=== PATIENT | female | born 1955 | race Caucasian/White ===

== ENCOUNTER 2020-09-06 06:25 | Observation (INO) ==
[2020-09-06 08:18] LABS: ABS Monocytes 0.5 10^3/ul (0-0.8); ABS Neutrophils 7.2 10^3/ul (1.5-7.7); Eosinophil % 0.4 %; Hematocrit 42 % (35-47); Lymphocyte % 20.7 %; Mean Corpuscular HGB Conc 34 g/dL (31-36); Mean Corpuscular Hemoglobin 31 pg (27-31); Mean Corpuscular Volume 91 fL (80-97); Nucleated Red Blood Cells % 0.1; Platelet Count 426 10^3/uL (150-450); Red Blood Count 4.57 10^6 /uL (3.70-4.87); Red Cell Distribution Width 13 % (10-15); White Blood Count 9.8 10^3/uL (3.5-10.8)
[2020-09-06 08:31] LABS: Albumin 4.4 g/dL (3.2-5.2); Albumin/Globulin Ratio 1.3 (1-3); Calcium 9.6 mg/dL (8.6-10.3); EGFR Non-African American 69.4 (>60); Globulin 3.4 g/dL (2-4); Potassium 3.6 mmol/L (3.5-5.0); Total Bilirubin 0.5 mg/dL (0.2-1.0); Total Protein 7.8 g/dL (6.4-8.9)
[2020-09-06] MEDS ORDERED: Piperacillin/Tazobac ADVAN 3.375 GM in NS 0.9% 100 ml BAG 100 ML IV ONE (08:43)
[2020-09-06] MEDS ORDERED: NS 0.9% 1000 ml BAG 2,040 ML IV ONE (08:45)
[2020-09-06] MEDS ORDERED: Magnesium Hydroxide LIQ 30 ML UDC PO PRN (09:55)
[2020-09-06 10:26] LABS: C Reactive Protein 19.4 mg/L (<8.01)
[2020-09-06 12:36] LABS: TSH Ultra Thyroid Stim Horm 3.3 mcIU/mL (0.34-5.60)
[2020-09-06] MEDS: Heparin 5000 UNITS/ML 1 mL VIAL SUBCUT SCH ×2 (13:48→21:23)
[2020-09-07] MEDS: Heparin 5000 UNITS/ML 1 mL VIAL SUBCUT SCH (04:53)
[2020-09-07 06:07] LABS: EGFR African American 97.4 (>60); EGFR Non-African American 80.5 (>60); HDL Cholesterol 52.3 mg/dL; Potassium 3.7 mmol/L (3.5-5.0)
[2020-09-07 11:30] VITALS: BP 151/70
== END 2020-09-07 13:10 | disposition home or self-care (01) ==
LOC: MEDTELE 06:25 → ED 06:25 → MEDTELE 11:23
PROVIDERS: ADMIT Internal Medicine; ATTEND Hospitalist